=== PATIENT | male | born 1995 | race Asian ===

== ENCOUNTER → 2021-03-24 | Outpatient (REF) ==
--- NOTE | 2021-03-24 11:08 | REP ---
INDICATION: PAIN. COMPARISON: None. TECHNIQUE: PA and lateral FINDINGS: The superior mediastinal structures are midline. The cardiac silhouette is unremarkable in size, shape, and position. The diaphragmatic surfaces of the lungs are regular, and the costophrenic angles are clear. The pulmonary pate are clear. The imaged osseous structures are intact. IMPRESSION: There is no acute cardiopulmonary disease. <Electronically signed by Justino Floyd > 03/24/21 1105
--- NOTE | 2021-03-24 11:10 | REP ---
INDICATION: PAIN. COMPARISON: None. TECHNIQUE: Four views FINDINGS: The distal portion of a fibular intramedullary prieto is identified. There is no acute fracture or destructive osseous lesion. The mortise is intact. IMPRESSION: Chronic changes as described above. <Electronically signed by Justino Floyd > 03/24/21 1104
--- NOTE | 2021-03-24 11:12 | REP ---
INDICATION: PAIN. COMPARISON: None. TECHNIQUE: AP and lateral views FINDINGS: The proximal portion of a fibular intramedullary prieto is identified. There is no acute fracture or destructive osseous lesion. IMPRESSION: As above. No acute abnormality is identified. <Electronically signed by Justino Floyd > 03/24/21 1101
--- NOTE | 2021-03-24 11:13 | REP ---
INDICATION: PAIN. COMPARISON: None TECHNIQUE: AP, lateral, swimmer's, and open-mouth views FINDINGS: Vertebral body height and alignment is within normal limits. The disc spaces appear symmetric and well maintained. Even with the swimmer's view of the C7-T1 level cannot be evaluated. Overlying dentition and or osseous structures obscure the dens on the open-mouth view. The facet joints appear to be well aligned bilaterally on this limited exam. IMPRESSION: A limited exam, as described above, showing no evidence of an acute abnormality. <Electronically signed by Justino Floyd > 03/24/21 2992
--- NOTE | 2021-03-24 11:13 | REP ---
INDICATION: PAIN. TECHNIQUE: AP and lateral views FINDINGS: Vertebral body height and alignment is within normal limits. The disc spaces are symmetric and well maintained. The pedicles are intact bilaterally. IMPRESSION: No acute abnormality is identified on this limited exam. <Electronically signed by Justino Floyd > 03/24/21 [id number]
== END ==
LOC: M PLAIMG 09:41
PROVIDERS: ATTEND Internal Medicine
DX: Z00.00 Encounter for general adult medical examination without abnormal findings (principal)